=== PATIENT | female | born 2000 | race American Indian/Alaskan Native ===

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

== ENCOUNTER → 2022-01-16 14:08 | Outpatient (CLI) | payer MEDICAID, OTHER, SELFPAY ==
--- NOTE | 2022-01-16 14:10 | DI.US.S_ITS ---
PROCEDURE: US OB <= 14 WEEKS FETUS INDICATIONS: ANATOMY OUTSIDE/PRIOR DATING DATA: Last menstrual period (LMP): 08/08/2021. LMP-based estimated date of delivery (TRANG): 05/15/2022. First dating scan (date and location): 01/16/2022. Estimated date of delivery (TRANG) from first dating scan: 05/21/2022. The calculations are made using the ultrasound TRANG of 05/21/2022. TECHNIQUE: Real-time scanning was performed of the fetus and maternal pelvic organs, with image documentation. COMPARISON: None. FINDINGS: Placenta: Posterior TOBIN: 19.7 cm Heart rate: 147 beats per minute Cervical length: 3.7 cm Biparietal diameter 5.4 cm. 22 weeks 3 days Head circumference 19.4 cm. 21 weeks 4 days Abdominal circumference 17.2 cm. 22 weeks 1 day Femur length 3.9 cm. 22 weeks 3 days. Estimated weight 482 grams. 12th percentile. Anatomic survey: Neuro: Ventricles are non-dilated at less than 10 mm. Cisterna magna is normal at 3-11 mm. Cerebellum is normal in size and morphology. Nuchal skin fold: Normal at less than 6 mm between 14-20 weeks gestational age. Face: Nose and lips, facial profile are normal. Spine: No evidence for spina bifida. Heart: 4-chambered heart is present, with normal ventricular outflow tracts. Diaphragm: Diaphragm is intact. Stomach: Left-sided stomach is present. Kidneys: No hydronephrosis. Normal is less than 4 mm in 2nd trimester, less than 7 mm in 3rd trimester. Cord: 3-vessel cord has orthotopic insertion. Bladder: Normal in size. Extremities: All 4 extremities identified. IMPRESSION: 1. Single live intrauterine with a composite gestational age of 22 weeks 1 day. 2. Estimated weight 482 grams. 12th percentile. 3. Anatomic survey is normal. We strive to produce accurate, complete, and clear reports of imaging services. To assist us in improving patient care, this report was composed using standard report templates and voice recognition software. Therefore, it may contain abnormal punctuation, insertions and/or omissions. Occasional wrong-word or sound-alike substitutions may occur. Though we review the report and make efforts to correct it, we do recommend that the report be read carefully in proper context to recognize any text inaccuracies. Dictated by: Christ Lala M.D. on 01/16/2022 at 16:09 Approved by: Christ Lala M.D. on 01/16/2022 at 16:14
== END ==
PROVIDERS: PCP Family Medicine; Referring Provider Family Medicine; Visit Provider Family Medicine
DX: Z3A.22 22 weeks gestation of pregnancy (principal); Z36.89 Encounter for other specified antenatal screening
CPT/HCPCS: 76801

== ENCOUNTER → 2022-03-14 14:34 | Outpatient (CLI) | payer MEDICAID, OTHER, SELFPAY ==
[2022-03-14 17:53] LABS: GTT (PREG) 1 Hour PP 50gm Dose 119 mg/dL (76-139)
[2022-03-14 19:03] LABS: Appearance Urine UA CLOUDY; Bilirubin Urine UA NEGATIVE (NEGATIVE); Color Urine UA YELLOW; Glucose Urine UA NEGATIVE (Negative); Ketones Urine UA NEGATIVE (NEGATIVE); Leukocyte Esterase Urine UA 2+ (NEGATIVE); Nitrite Urine UA NEGATIVE (Negative); Occult Blood Urine UA NEGATIVE (Negative); Protein Urine UA 2+ (Negative)
[2022-03-14 19:05] LABS: pH Urine UA 6.5 (4.5-8.0)
[2022-03-14 19:07] LABS: Bacteria Urine Many (>30); Culture Indicated Urine Specimen Cultured; RBC Urine 0-1/HPF (0-5/HPF); Squamous Epithelial Cell Urine 5-10 /HPF (0-5/HPF); WBC Urine 10-30/HPF (0-5/HPF)
== END ==
PROVIDERS: PCP Family Medicine; Referring Provider Family Medicine; Visit Provider Family Medicine
DX: N39.0 Urinary tract infection, site not specified (principal); Z34.93 Encounter for supervision of normal pregnancy, unspecified, third trimester; Z3A.29 29 weeks gestation of pregnancy
CPT/HCPCS: 81001; 82950; 87077; 87086; 87186

== ENCOUNTER → 2022-05-04 16:15 | Outpatient (CLI) | payer MEDICAID, OTHER, SELFPAY ==
[2022-05-05 15:02] LABS: Strep Grp B PCR NEG for Grp B Strep
== END ==
PROVIDERS: PCP Family Medicine; Visit Provider Family Medicine
DX: Z36.85 Encounter for antenatal screening for Streptococcus B (principal)
CPT/HCPCS: 87653

== ENCOUNTER 2022-05-15 08:12 | Inpatient (IN) | payer MEDICAID, OTHER, SELFPAY ==
--- NOTE | 2022-05-15 09:00 | PM.OBHP.1 ---
OB HPI Date/Time Date of admission: 05/15/22 Date Patient Seen: 05/15/22 Time Patient Seen: 09:00 History of Present Condition Chief complaint: L&D : 2 Para: 1 Estimated Date of Delivery: 05/28/22 Estimated Gestational Age (weeks): 38+1 Narrative: Shabnam Means is a 21 year old TRANG 05/28/2022 who presents with SROM earlier this AM and steadily increasing contractions. Excellent care has been provided by Dr. Bethany Power and her course has been uneventful. GBS is negative. History of Present care: good care Dating criteria: LMP confirmed by 1st trimester US Ultrasounds: normal 1st trimester US and normal mid trimester US Medical complications: none Preadmission Labs Blood type: O (+) positive -: Antibody screen: negative, GBS status: negative, HBsAG: negative, HIV: negative and RPR/VDLR: negative -: Chlamydia screen: not detected and Gonorrhea screen: not detected -: Rubella: not immune and Varicella: immune HCT: 30.8 HCAB: negative PAP: Normal Quad screen: Normal 1 hr GTT: 119 Prior (ies) History: x 1 Evaluation Evaluation Baseline heart rate: 135 Variability: Moderate (11-25) monitor accelerations: Present Monitor Decelerations: Absent Contraction Frequency (minutes): 3 Uterine Contraction Intensity: Moderate Category of Tracing: Reactive Dilation (cm): 5 Effacement (%): 100 Dilation: >/=5 cm Effacement: >/=80% station: 0 Position of cervix: anterior Consistency: soft Emanuel score: 12 Non-invasive Membranes Rupture Test: positive Comments: Thin meconium staining noted. [facility] Medical History (Updated 01/25/22 @ 05:35 by Bethany Power MD) Healthy adolescent hemorrhage (spontaneous vaginal delivery) Teeth decayed Family History Grandmother Breast cancer Uterine cancer Rheumatoid arteritis Grandfather Septicemia Diabetes mellitus Pancreatitis Kidney failure Sister Eye disease Grandfather Alcoholic Family/Other Diabetes mellitus Hypertension Social History marital status: unmarried,living together number of children: 1 household members: significant other, family and children housing: house pets and animals: No education level: high school occupational status: unemployed current occupational exposures/hazards: No seatbelt use: always water heater temp set < 120 deg: Yes working smoke detector in home: Yes fire extinguisher in home: Yes carbon monox detector in home: Yes firearms in home: No do you feel safe at home: Yes Smoking Status: Never smoker substance use type: does not use during the past year weight has: remained stable well-balanced diet: daily or most days daily servings fruits/ve-4 caffeine: No eating out: rarely or never Type(s) of exercise: walking Meds Home Medications and Allergies Home Medications Medication Instructions Recorded Confirmed Type vitamin 1 tab PO DAILY #90 tabs 09/29/21 05/15/22 Rx no.76-iron,carbonyl 29 mg iron-folic acid 1 mg tablet (Prenatabs Rx) Allergies Allergy/AdvReac Type Severity Reaction Status Date / Time amoxicillin Allergy Severe swollen, Verified 05/11/22 15:31 SOB, lips swell cephalexin Allergy Severe selling of Verified 05/11/22 15:31 face OB Exam [facility] Head: normal to inspection, normocephalic and atraumatic Eyes General: appearance normal, both eyes and all related structures Resp Effort & Inspection: normal respiratory effort and able to speak in complete sentences Auscultation: clear to auscultation bilaterally Cardio Rate: regular rate Rhythm: regular rhythm Heart Sounds: S1 normal, S2 normal and no murmurs Extremities Lower extremity: Yes normal to inspection GI Inspection: normal to inspection Palpation: Yes soft and Yes no hepatosplenomegaly Uterus Location (Fundal Height): 38 Estimated Weight (lbs): 8 Amniotic Fluid: meconium (Light) Objective Labs Result Diagrams: 05/16/22 06:38 Assessment and Plan Assessment and Plan Assessment and Plan narrative: ASSESSMENT 1. Intrauterine gestation, [facility], 38+ 1 weeks gestational age 2. SROM, thin meconium 3. GBS negative PLAN 1. Admit for 2. See admission orders Time Spent with Patient Total time spent with greater than 50% in coordination of care (as documented) at patient's floor/unit and/or counseling patient:: 15-24 minutes
[2022-05-15 09:32] LABS: COVID19 -Nasal RAPID Negative (Negative)
[2022-05-15 10:23] LABS: Add Manual Diff / Slide Review NO; Basophils Absolute Auto 0 /uL (0-100); Basophils Percent Auto 0.3 % (0-2); Eosinophils Absolute Auto 100 /uL (0-450); Eosinophils Percent Auto 0.7 % (2-4); Hematocrit 30.8 % (36-46); Hemoglobin 10.2 g/dL (12.0-16.0); Lymphocytes Absolute Auto 1700 /uL (1100-4500); Lymphocytes Percent Auto 19.3 % (25-40); Mean Corpuscular Hemoglobin 25.6 PG (26-34); Mean Corpuscular Volume 77.5 fL (80-100); Monocytes Absolute Auto 400 /uL (0-900); Monocytes Percent Auto 4.2 % (3-14); Neutrophils Absolute Auto 6500 /uL (1500-7000); Neutrophils Percent Auto 75.5 % (50-75); Platelet Count 333 X10^3/uL (150-400); Red Blood Cell Count 3.98 X10^6/uL (4.0-5.2); Red Cell Distribution Width 15.9 % (11.6-14.8); White Blood Cell Count 8.7 X10^3/uL (4.5-11.0)
[2022-05-15 10:30] VITALS: BP 116/78
[2022-05-15] MEDS: OXYTOCIN PREMIX 30 UNIT/500 ML PLAST..BAG 200 UNIT IV (11:15)
--- NOTE | 2022-05-15 11:36 | PM.OBPRVD ---
Labor & Delivery Delivery date: 05/15/22 Intrapartal Events: None Cervical ripening method: none Induction method: none Delivery monitor: external FHT and external uterine Route of delivery: L&D Laceration Description: Perineal - 2nd Degree Delivery repair: chromic Estimated blood loss (mL): 200 Anesthesia Type: Local Complications: None Narrative: Patient presented on the morning of 05/15/2022 with spontaneous rupture membranes and thin meconium staining was noted. Patient progressed rapidly to the second stage and after a brief 2nd stage delivered spontaneously over an intact perineum a viable male infant with Apgars of 9 and 10 and a weight of 3497 gms..? No shoulder dystocia was encountered and there was no cord entanglement noted.? Skin to skin contact was initiated immediately and after approximately 90 seconds the umbilical cord was clamped and cut by the father.? Cord blood samples were obtained for routine studies.? The placenta was removed with gentle cord traction and suprapubic countertraction.? The placenta was inspected and found to be intact with or normal insertion of a 3 vessel cord.? Inspection of the perineum showed a very superficial second-degree midline perineal laceration which was repaired with 00 CCGS under local anesthesia using 1% plain lidocaine.? Instrument and sponge counts were correct at the end of the procedure.? EBL is 350 cc and a single dose of methergine was administered to control slightly excessive delivery losses. Both mother and are doing well at the completion of the delivery process. Baby 1: Infant gender: Male Presentation: vertex Position: Left Occiput Anterior Placenta delivery description: Spontaneous Cord Vessel Description: 3 Vessels score (1 min): 9 score (5 min): 9 weight: 7 lb 11.353 oz
[2022-05-15] MEDS: METHYLERGONOVINE 0.2 MG/ML VIAL IM (11:45)
[2022-05-15] MEDS: ACETAMINOPHEN 325 MG TABLET 650 MG PO ×2 (12:54→18:32)
[2022-05-16 06:51] LABS: Hemoglobin 8.6 g/dL (12.0-16.0)
--- NOTE | 2022-05-16 08:01 | P.DS_ITS ---
Discharge Providers Provider Date of admission: 05/15/22 08:12 Discharge Date: 05/16/22 Primary care physician: Phillip Neff MD Consults: 05/15/22 08:56 Consult to Anesthesiology Urgent Comment: Consulting Provider: Phillip Neff Reason for consultation: SUE placement in labor 05/16/22 11:34 Consult to Natural Sciences Department Chair Routine Comment: Discharge provider: Phillip Neff MD Summary Hospital Course Date Patient Seen: 05/16/22 Time Patient Seen: 08:02 Diagnoses: Intrauterine gestation, [facility], 38+ 1 weeks gestational age, delivered Hospital Course: Shabnam presented on the morning of 05/15/2022 with spontaneous rupture membranes and active contractions. Thin meconium staining was noted. The patient progressed rapidly through the 1st stage of labor and delivered spontaneously a healthy male infant mid day 05/15/2022. Following delivery the patient had a transient increase in her bleeding which responded nicely to IV Pitocin and IM methergine. Her post delivery hemoglobin & hematocrit are 8.6/26.0 respectively which is consistent with observed delivery losses. Following delivery she has had prompt return of bowel and bladder function, is ambulating independently, tolerating regular diet, and her pain is well controlled with oral Tylenol. She will be discharged at this time to home in an afebrile normotensive condition after being counseled regarding precautionary symptoms, limitations of activity, medications, plans for follow- up. Medications at discharge will include Tylenol for pain relief, patient will continue her vitamins, and she will also take an iron tablet daily with a vitamin-C tablet for the next 30 days. Follow-up will be with Dr. Power in 6 weeks or as needed. Peripartum Data Delivery Method: Natural Vaginal Laceration Description: Perineal - 2nd Degree Episiotomy description: None Procedures: Spontaneous vaginal delivery Repair of second-degree perineal laceration 1: Gender: Male Disposition of : home Status at Discharge Cognitive/behavioral status at discharge: oriented Functional status at discharge: independent ambulation Time Spent with Patient Time attestation: Total time spent providing and/or coordinating discharge services: Time spent: Less than 30 minutes Objective Labs Result Diagrams: 05/16/22 06:38 Labs: Laboratory Results - last 24 hr 05/15/22 05/15/22 05/15/22 08:55 10:00 10:00 WBC 8.7 RBC 3.98 L Hgb 10.2 L Hct 30.8 L MCV 77.5 L MCH 25.6 L MCHC 33.0 RDW 15.9 H Plt Count 333 Neut % (Auto) 75.5 H Lymph % (Auto) 19.3 L [place] % (Auto) 4.2 Eos % (Auto) 0.7 L Baso % (Auto) 0.3 Neut # (Auto) 6500 Lymph # (Auto) 1700 [place] # (Auto) 400 Eos # (Auto) 100 Baso # (Auto) 0 SARS-CoV-2 (PCR) Negative Blood Type O Positive Antibody Screen Negative 05/16/22 06:38 WBC RBC Hgb 8.6 L Hct 26.0 L MCV MCH MCHC RDW Plt Count Neut % (Auto) Lymph % (Auto) [place] % (Auto) Eos % (Auto) Baso % (Auto) Neut # (Auto) Lymph # (Auto) [place] # (Auto) Eos # (Auto) Baso # (Auto) SARS-CoV-2 (PCR) Blood Type Antibody Screen Exam Const General: cooperative and comfortable Nutritional Appearance: average body habitus Orientation: alert and oriented x3 HENMT Head: normal to inspection, atraumatic and abrasion Ears: hearing grossly normal bilaterally Face and sinus: face symmetric Eyes General: appearance normal, both eyes and all related structures Conjunctivae: conjunctivae normal Sclera: sclerae normal EOM: EOM intact bilaterally Neck Neck: normal visual inspection Resp Effort & Inspection: normal respiratory effort and able to speak in complete sentences GI Inspection: normal to inspection Palpation: soft, no hepatosplenomegaly, mass (Firm, minimally tender fundus, U - 4) and No tender External Female Exam: other (No significant bleeding noted, repair intact) Extrem General: no calf tenderness Psych Appearance: grossly normal Mental Status: mental status grossly normal Speech and Movement: speech and movement normal Mood: congruent mood Affect: normal affect Attitude: cooperative Thought Process: normal Thought Content: normal Judgment: judgment good Discharge Plan Discharge Plan Patient Disposition: Home Provider Discharge Comment: Please review the written instructions you received when you were discharged from the hospital. A follow-up appointment with Dr. Power has been scheduled for 6 weeks from your delivery. Congratulations on your son's ! Discharge orders & Medications Prescriptions: Continued Prenatabs Rx 29 mg iron- 1 mg tablet 1 tab PO DAILY Qty: 90 3RF Medication counseling provided by Pharmacist: No Follow up/Referrals: Bethany Power MD [Physician] - 6 Weeks (Please follow up with Dr. Power on June 26 @1030AM. Please call the clinic with any questions comments or concerns. ) Discharge Health Status Multidrug resistant organism: No MDRO Diet/Activity/Treatments Diet: Diet as Tolerated Activity: As tolerated Other treatments: [id number] Tylenol for pain relief. [id number]-[id number] iron tablet, 1 daily with food and a vitamin-C tablet for the next 30 days. Skin/Wound/Dressing Care Report to your healthcare provider any signs of infection, such as:: chills, fever, night sweats, unusual drainage and unusual redness Dressing: N/A Visit Report/Discharge Packet Instructions: DI for Labor and Delivery, Vaginal , DI for and Nipple Soreness Stand Alone Forms: Discharge: Care Discharge Data Primary Care Provider: Phillip Neff
[2022-05-16 11:22] VITALS: BP 112/78; PULSE 85; RESP 16; TEMP 36.8
== END 2022-05-16 11:50 | disposition home or self-care (01) | DRG 807 ==
PROVIDERS: Admitting Provider Obstetrics & Gynecology; PCP Obstetrics & Gynecology; Referring Provider Family Medicine; Visit Provider Obstetrics & Gynecology
DX: O42.02 Full-term premature rupture of membranes, onset of labor within 24 hours of rupture (principal); Z37.0 Single live birth; O77.0 Labor and delivery complicated by meconium in amniotic fluid; Z3A.38 38 weeks gestation of pregnancy; Z20.822 Contact with and (suspected) exposure to COVID-19
CPT/HCPCS: 36415; 59050; 59410; 85014; 85018; 85025; 86850; 86900; 86901; 87635; C9803; G0379; J2210; J2590

== ENCOUNTER 2022-08-23 18:49 | Emergency (ER) | payer MEDICAID, OTHER, SELFPAY ==
[2022-08-23 19:16] VITALS: BP 125/60; PULSE 94; RESP 18; O2SAT 100; BMI 26.4
== END 2022-08-23 22:48 | disposition left against medical advice (07) ==
PROVIDERS: PCP Obstetrics & Gynecology; Visit Provider Emergency Medicine
DX: R07.9 Chest pain, unspecified (principal); R06.02 Shortness of breath; Z53.21 Procedure and treatment not carried out due to patient leaving prior to being seen by health care provider
CPT/HCPCS: 93005; 93010; 99281

== ENCOUNTER 2023-02-08 01:17 | Emergency (ER) | payer MEDICAID, OTHER, SELFPAY ==
[2023-02-08 01:25] VITALS: BP 118/73; PULSE 92; RESP 18; TEMP 36.6; O2SAT 100
--- NOTE | 2023-02-08 02:06 | ED.SKABFB ---
HPI - Skin/Abscess/Foreign Bdy General Chief complaint: Skin/Abscess/Foreign Body Stated complaint: wisdomteeth pulled having allergic reaction to med Time Seen by Provider: 02/08/23 01:49 Source: patient Mode of arrival: Ambulatory Limitations: no limitations History of Present Illness HPI narrative: Patient is a healthy 22-year-old female who reports that she is 5 wisdom teeth pulled today. She is allergic to ibuprofen and amoxicillin her dentist gave her dexamethasone. She took the 1st dose just recently now feels like she has bumps on her lips. Her mouth is swollen she is managing her secretions she is no stridor. She is no other hives. She reports that when she was allergic to amoxicillin her lips swelled and she is worried that she is having allergic reaction again. She was prescribed clindamycin which he is not yet taken along with hydrocodone also which she is not yet taken. Who reports that she is currently a 9-month-old baby. Related Data Previous Rx's Medication Instructions Recorded vitamin 1 tab PO DAILY #90 tabs 09/29/21 no.76-iron,carbonyl 29 mg iron-folic acid 1 mg tablet (Prenatabs Rx) Allergies Allergy/AdvReac Type Severity Reaction Status Date / Time amoxicillin Allergy Severe swollen, Verified 06/26/22 13:58 SOB, lips swell cephalexin Allergy Severe selling of Verified 06/26/22 13:58 face Review of Systems Review of Systems ROS Unobtainable: All systems reviewed & are unremarkable except as noted in HPI and below Patient History Medical History Healthy adolescent hemorrhage (spontaneous vaginal delivery) Teeth decayed Family History Grandmother Breast cancer Uterine cancer Rheumatoid arteritis Grandfather Septicemia Diabetes mellitus Pancreatitis Kidney failure Sister Eye disease Grandfather Alcoholic Family/Other Diabetes mellitus Hypertension Social History marital status: unmarried,living together number of children: 1 household members: significant other, family and children housing: house pets and animals: No education level: high school occupational status: unemployed current occupational exposures/hazards: No seatbelt use: always water heater temp set < 120 deg: Yes working smoke detector in home: Yes fire extinguisher in home: Yes carbon monox detector in home: Yes firearms in home: No do you feel safe at home: Yes Smoking Status: Never smoker substance use type: does not use during the past year weight has: remained stable well-balanced diet: daily or most days daily servings fruits/ve-4 caffeine: No eating out: rarely or never Type(s) of exercise: walking Smoking Status: Never smoker Substance Use Type: does not use Exam Initial Vital Signs Initial Vital Signs: Vital Signs Temperature 98 F 02/08/23 01:25 Pulse Rate 92 H 02/08/23 01:25 Respiratory Rate 18 02/08/23 01:25 Blood Pressure 118/73 02/08/23 01:25 Pulse Oximetry 100 02/08/23 01:25 Oxygen Delivery Method Room Air 02/08/23 01:25 GENERAL: Alert 22-year-old female MOUTH: Minimal lip swelling no obvious bumps or bubbles that she reports seeing. CARDIOVASCULAR: peripheral pulses in tact, cap refill <2 sec RESPIRATORY: No respiratory distress, speaks in full sentences without difficulty EXTREMITIES: Normal range of motion, no clubbing or edema. Neurovascularly intact NEUROLOGICAL: Cranial nerves II through XII grossly intact. Normal gait and speech. SKIN: Warm, dry, no petechiae, no rashes or lesions. No hives or urticaria Course Vital Signs Vital signs: Vital Signs - 8 hr 02/08/23 01:25 02/08/23 02:24 Temperature 98 F 97.6 F Pulse Rate 92 H 74 Respiratory Rate 18 16 Blood Pressure 118/73 108/68 Pulse Oximetry 100 98 Oxygen Delivery Method Room Air Room Air MDM - Skin/Abscess/Foreign Bdy MDM Narrative Medical decision making narrative: Patient is a 22 old female history of allergic reaction ibuprofen and amoxicillin. After taking 1 dose of dexamethasone she reports seeing swelling and blisters on her lips. I do not appreciate any sign of allergic reaction. Think her mouth is swollen tender from having 5 teeth pulled earlier today. He is offered Benadryl however it can decrease her milk supply she would prefer not to she would like to go home and take allergy medication. At this time there is no sign of anaphylaxis or severe allergic reaction having no intervention is required. Discharge Plan Departure Patient Disposition: Home Clinical Impression: Pain following oral surgery Instructions: DI for Dental Pain Activity Restrictions/Additional Instructions: *You have been diagnosed with mouth pain dental pain *What to do: At this time I do not see any obvious sign of allergic reaction however please continue to monitor. I think lips are swollen sore from the events of earlier today. *Continue to take medications as directed Cetirizine 1 tablet daily is needed *Follow up with your primary care provider in 2-3 days or call [phone] *Return to ER if you should have increased lip swelling difficulty swallowing throat tightness or any new, worsening or concerning symptoms Prescriptions: No Action Prenatabs Rx 29 mg iron- 1 mg tablet 1 tab PO DAILY Qty: 90 3RF Referrals: Phillip Neff MD [Primary Care Provider] - Stand Alone Forms: Patient Portal/API
[2023-02-08 02:24] VITALS: BP 108/68; PULSE 74; RESP 16; TEMP 36.4; O2SAT 98
== END 2023-02-08 02:25 | disposition home or self-care (01) ==
PROVIDERS: Emergency Provider Emergency Medicine; PCP Obstetrics & Gynecology
DX: K08.89 Other specified disorders of teeth and supporting structures (principal)
CPT/HCPCS: 99281

== ENCOUNTER 2023-12-31 16:53 | Emergency (ER) | payer MEDICAID, OTHER, SELFPAY ==
[2023-12-31 17:05] VITALS: BP 120/65; PULSE 90; RESP 18; TEMP 36.8; O2SAT 100
[2023-12-31 17:13] VITALS: PULSE 99; RESP 20
[2023-12-31 17:14] VITALS: BP 118/70; PULSE 100; RESP 20; O2SAT 98
--- NOTE | 2023-12-31 17:24 | PC.NURSE ---
Pt states that she has been feeling left sided cp and pain in her left arm since 12/29/2023. Pt has hx of anxiety but no other medical problems. Pt reports being prescribed a flouxetine recently but has not taken it yet. Denies cp, sob, n/v at this time. Denies pain in her arm. a&ox4. Pt tearful states that she is anxious something is wrong with her heart.
[2023-12-31 17:30] VITALS: BP 106/60; PULSE 96; RESP 20; O2SAT 100
[2023-12-31 18:00] VITALS: BP 104/66; PULSE 93; O2SAT 98
--- NOTE | 2023-12-31 18:06 | DI.RAD.S_ITS ---
PROCEDURE: XR CHEST 1V INDICATIONS: chest pain TECHNIQUE: One view of the chest was acquired. COMPARISON: None. FINDINGS: Surgical changes and devices: None. Lungs and pleura: Low lung volumes, but otherwise lungs are clear. No pleural effusions or pneumothorax. Mediastinum: Mediastinal contours appear normal. Heart size is normal. Bones and chest wall: No suspicious bony lesions. Overlying soft tissues appear unremarkable. IMPRESSION: No acute cardiopulmonary abnormality is seen. Approved by: Alison Izquierdo M.D. on 12/31/2023 at 17:33
[2023-12-31 18:30] VITALS: BP 108/56; PULSE 97; RESP 22; O2SAT 100
--- NOTE | 2023-12-31 18:39 | ED_ITS ---
HPI - Chest Pain General Chief Complaint: Chest Pain Stated Complaint: numbness in left arm Time Seen by Provider: 12/31/23 17:55 Source: patient Mode of arrival: Ambulatory Limitations: no limitations History of Present Illness HPI narrative: 23-year-old female. Three days ago in the middle of the night started to left- sided chest discomfort. It has been intermittent since then. She has not currently having discomfort. She also states she has had tingling to her left arm. She actually describes it as tingling to her left hand circumferentially and then circumferentially around the upper part of her arm. She was also having right hand tingling as well. No shortness of breath. No abdominal pain or nausea vomiting. She currently is asymptomatic. Symptoms not worse with palpation or movement. Related Data Previous Rx's Medication Instructions Recorded vitamin 1 tab PO DAILY #90 tabs 09/29/21 no.76-iron,carbonyl 29 mg iron-folic acid 1 mg tablet (Prenatabs Rx) fluoxetine 20 mg tablet 20 mg PO DAILY #30 tabs 12/03/23 Allergies Allergy/AdvReac Type Severity Reaction Status Date / Time amoxicillin Allergy Severe swollen, Verified 12/03/23 14:36 SOB, lips swell cephalexin Allergy Severe selling of Verified 12/03/23 14:36 face Review of Systems Constitutional Constitutional: Reports system reviewed and no additional complaints, except as documented Cardiovascular Cardiovascular: Reports system reviewed and no additional complaints, except as documented Respiratory Respiratory: Reports system reviewed and no additional complaints, except as documented Gastrointestinal Gastrointestinal: Reports system reviewed and no additional complaints, except as documented Musculoskeletal Musculoskeletal: Reports system reviewed and no additional complaints, except as documented Integumentary/Breasts Skin/Breast: Reports system reviewed and no additional complaints, except as documented Neurologic Neurologic: Reports system reviewed and no additional complaints, except as documented Patient History Medical History hemorrhage (spontaneous vaginal delivery) Teeth decayed Healthy adolescent Family History Grandmother Breast cancer Uterine cancer Rheumatoid arteritis Grandfather Septicemia Diabetes mellitus Pancreatitis Kidney failure Sister Eye disease Grandfather Alcoholic Family/Other Diabetes mellitus Hypertension Social History marital status: unmarried,living together number of children: 1 household members: significant other, family and children housing: house pets and animals: No education level: high school occupational status: unemployed current occupational exposures/hazards: No seatbelt use: always water heater temp set < 120 deg: Yes working smoke detector in home: Yes fire extinguisher in home: Yes carbon monox detector in home: Yes firearms in home: No do you feel safe at home: Yes Smoking Status: Never smoker substance use type: does not use during the past year weight has: remained stable well-balanced diet: daily or most days daily servings fruits/ve-4 caffeine: No eating out: rarely or never Type(s) of exercise: walking Smoking Status: Never smoker Substance Use Type: does not use Exam Initial Vital Signs Initial Vital Signs: Vital Signs Temperature 98.3 F 12/31/23 17:05 Pulse Rate 90 12/31/23 17:05 Respiratory Rate 18 12/31/23 17:05 Blood Pressure 120/65 12/31/23 17:05 Pulse Oximetry 100 12/31/23 17:05 Oxygen Delivery Method Room Air 12/31/23 17:05 HENMT Head: normal to inspection and normocephalic Resp Effort & Inspection: normal respiratory effort Auscultation: clear to auscultation bilaterally Cardio Rate: regular rate Rhythm: regular rhythm Pulses: radial pulses present on the left GI Inspection: normal to inspection Skin General: no rashes or lesions noted Neuro General: patient alert, patient awake, patient oriented x3 and moves all extremities Extrem General: normal to inspection and capillary refill normal Course Orders Ordered: ED Orders 12/31/23 17:17 EKG-12 Lead Stat 12/31/23 18:06 XR chest 1V Stat Vital Signs Vital signs: Vital Signs - 8 hr 12/31/23 17:05 12/31/23 17:13 12/31/23 17:14 Temperature 98.3 F Pulse Rate 90 99 H Respiratory Rate 18 20 Blood Pressure 120/65 118/70 Pulse Oximetry 100 Oxygen Delivery Method Room Air 12/31/23 17:14 12/31/23 17:30 12/31/23 17:30 Temperature Pulse Rate 100 H 96 H Respiratory Rate 20 20 Blood Pressure 106/60 Pulse Oximetry 98 100 Oxygen Delivery Method 12/31/23 18:00 12/31/23 18:00 12/31/23 18:30 Temperature Pulse Rate 93 H Respiratory Rate Blood Pressure 104/66 108/56 L Pulse Oximetry 98 Oxygen Delivery Method 12/31/23 18:30 Temperature Pulse Rate 97 H Respiratory Rate 22 Blood Pressure Pulse Oximetry 100 Oxygen Delivery Method MDM - Chest Pain Imaging Data Chest x-ray: Radiologist's Impression: PROCEDURE: XR CHEST 1V INDICATIONS: chest pain TECHNIQUE: One view of the chest was acquired. COMPARISON: None. FINDINGS: Surgical changes and devices: None. Lungs and pleura: Low lung volumes, but otherwise lungs are clear. No pleural effusions or pneumothorax. Mediastinum: Mediastinal contours appear normal. Heart size is normal. Bones and chest wall: No suspicious bony lesions. Overlying soft tissues appear unremarkable. IMPRESSION: No acute cardiopulmonary abnormality is seen. ECG Data Attestation: I personally reviewed and interpreted this ECG as follows: Interpretation: Sinus tachycardia Ventricular rate 102 Normal axis Normal QRS Normal QTC No ST T wave changes MDM Narrative Medical decision making narrative: Currently asymptomatic. EKGs unremarkable. Chest x-ray is unremarkable. No chest pain currently. I have low suspicion for ACS. No indication for antibiotics. The tingling she is having in her arm does not follow any specific cervical nerve root distribution. I do feel that we can hold on further radiologic studies for now. She was given return precautions. She expressed understanding and agreement. Discharge Plan Departure Patient Disposition: Home Clinical Impression: Paresthesia of left arm Instructions: DI for Numbness/Tingling Activity Restrictions/Additional Instructions: Your workup here in the emergency department is very reassuring. Recommend that you continue any medications as directed. Contact your primary doctor for a follow-up. Return to the emergency department for new symptoms. Prescriptions: No Action fluoxetine 20 mg tablet 20 mg PO DAILY Qty: 30 2RF Prenatabs Rx 29 mg iron- 1 mg tablet 1 tab PO DAILY Qty: 90 3RF Referrals: Phillip Neff MD [Primary Care Provider] - Stand Alone Forms: Patient Portal/API
== END 2023-12-31 18:47 | disposition home or self-care (01) ==
PROVIDERS: Emergency Provider Emergency Medicine; PCP Obstetrics & Gynecology
DX: R20.2 Paresthesia of skin (principal); R07.9 Chest pain, unspecified
CPT/HCPCS: 71045; 93005; 99283; 99284

== ENCOUNTER 2024-07-20 18:56 | Emergency (ER) | payer MEDICAID, OTHER, SELFPAY ==
[2024-07-20 19:09] VITALS: BP 131/69; PULSE 89; RESP 16; TEMP 36.6; O2SAT 99; BMI 38.2
--- NOTE | 2024-07-20 19:12 | DI.RAD.S_ITS ---
PROCEDURE: XR WRIST RT MIN 3V INDICATIONS: pain without injury TECHNIQUE: 3 views of the wrist were acquired. COMPARISON: None. FINDINGS: Bones: No fractures or dislocations. No suspicious bony lesions. Soft tissues: No suspicious soft tissue calcifications. IMPRESSION: No gross acute right wrist fracture or dislocation. Dictated by: Turner Tinajero M.D. on 07/20/2024 at 19:53 Approved by: Turner Tinajero M.D. on 07/20/2024 at 19:53
--- NOTE | 2024-07-20 20:04 | ED.EXTPRO ---
HPI - Extremity Problem General Chief complaint: Extremity Problem,Nontraumatic Stated complaint: R WRIST PAIN Time Seen by Provider: 07/20/24 19:18 Source: patient Mode of arrival: Ambulatory History of Present Illness HPI Narrative: Patient is a 24-year-old female here for evaluation of right wrist pain. Symptoms have been present for the past day or so. No specific injury for the discomfort although she does have a 2-year-old. She was right-handed. She does hold the child in her right arm frequently specifically to feed. No elbow pain. Has not tried anything for the symptoms prior to arrival. Related Data Previous Rx's Medication Instructions Recorded vitamin 1 tab PO DAILY #90 tabs 09/29/21 no.76-iron,carbonyl 29 mg iron-folic acid 1 mg tablet (Prenatabs Rx) fluoxetine 20 mg tablet 20 mg PO DAILY #30 tabs 12/03/23 Allergies Allergy/AdvReac Type Severity Reaction Status Date / Time amoxicillin Allergy Severe swollen, Verified 07/20/24 19:09 SOB, lips swell cephalexin Allergy Severe selling of Verified 07/20/24 19:09 face Review of Systems Musculoskeletal Musculoskeletal: Reports system reviewed and no additional complaints, except as documented Integumentary/Breasts Skin/Breast: Reports system reviewed and no additional complaints, except as documented Neurologic Neurologic: Reports system reviewed and no additional complaints, except as documented Patient History Medical History hemorrhage (spontaneous vaginal delivery) Teeth decayed Healthy adolescent Family History Grandmother Breast cancer Uterine cancer Rheumatoid arteritis Grandfather Septicemia Diabetes mellitus Pancreatitis Kidney failure Sister Eye disease Grandfather Alcoholic Family/Other Diabetes mellitus Hypertension Social History marital status: unmarried,living together number of children: 1 household members: significant other, family and children housing: house pets and animals: No education level: high school occupational status: unemployed current occupational exposures/hazards: No seatbelt use: always water heater temp set < 120 deg: Yes working smoke detector in home: Yes fire extinguisher in home: Yes carbon monox detector in home: Yes firearms in home: No do you feel safe at home: Yes Smoking Status: Never smoker substance use type: does not use during the past year weight has: remained stable well-balanced diet: daily or most days daily servings fruits/ve-4 caffeine: No eating out: rarely or never Type(s) of exercise: walking Smoking Status: Never smoker Substance Use Type: does not use Exam Initial Vital Signs Initial Vital Signs: Vital Signs Temperature 97.9 F 07/20/24 19:09 Pulse Rate 89 07/20/24 19:09 Respiratory Rate 16 07/20/24 19:09 Blood Pressure 131/69 07/20/24 19:09 Pulse Oximetry 99 07/20/24 19:09 Oxygen Delivery Method Room Air 07/20/24 19:09 Cardio Pulses: radial pulses present on the right Skin General: no rashes or lesions noted Neuro Sensory Exam: no sensory deficits noted Extrem Other: Some discomfort with palpation of the dorsum of the right wrist but she was able to flex and extend and pronate and supinate. Her right elbow is unremarkable. Right hand is unremarkable. Course Orders Ordered: ED Orders 07/20/24 19:12 XR wrist RT min 3V Stat Discontinued Medications Acetaminophen (Acetaminophen 325 Mg Tablet) 650 mg PO NOW ONE Stop: 07/20/24 20:06 Last Admin: 07/20/24 20:14 Dose: 650 mg Documented By: MICHELLE Vital Signs Vital signs: Vital Signs - 8 hr 07/20/24 19:09 07/20/24 20:21 07/20/24 20:22 Temperature 97.9 F Pulse Rate 89 86 Pulse Rate [Right Radial] 85 Respiratory Rate 16 17 Blood Pressure 131/69 105/62 Pulse Oximetry 99 98 Oxygen Delivery Method Room Air Room Air MDM - Extremity (Nontraumatic) Imaging Data Extremity x-ray #1: Radiologist's Impression: PROCEDURE: XR WRIST RT MIN 3V INDICATIONS: pain without injury TECHNIQUE: 3 views of the wrist were acquired. COMPARISON: None. FINDINGS: Bones: No fractures or dislocations. No suspicious bony lesions. Soft tissues: No suspicious soft tissue calcifications. IMPRESSION: No gross acute right wrist fracture or dislocation. [facility] Narrative Medical decision making narrative: No specific injury. No fractures or dislocations noted on the x-ray. I suspect that her discomfort is coming from overuse specifically with lifting her child and other activities related to this. We discussed conservative measures at home. Discussed return precautions. She expressed understanding and agreement with plan. Discharge Plan Departure Patient Disposition: Home Clinical Impression: Sprain of right wrist Instructions: DI for Wrist Sprain, How To Perform RICE (Rest, Ice, Compress, Elevate) Activity Restrictions/Additional Instructions: The wrist splint is for your comfort. You can take it off to shower to wash your hands. Recommend Tylenol and ibuprofen for discomfort. Return to the emergency department for new symptoms. Prescriptions: No Action fluoxetine 20 mg tablet 20 mg PO DAILY Qty: 30 2RF Prenatabs Rx 29 mg iron- 1 mg tablet 1 tab PO DAILY Qty: 90 3RF Referrals: Phillip Neff MD [Primary Care Provider] - Stand Alone Forms: Patient Portal/API
[2024-07-20] MEDS: ACETAMINOPHEN 325 MG TABLET 650 MG PO (20:14)
[2024-07-20 20:21] VITALS: BP 105/62; PULSE 86; RESP 17; O2SAT 98
[2024-07-20 20:22] VITALS: PULSE 85
== END 2024-07-20 20:26 | disposition home or self-care (01) ==
PROVIDERS: Emergency Provider Emergency Medicine; PCP Obstetrics & Gynecology
DX: S63.501A Unspecified sprain of right wrist, initial encounter (principal)
CPT/HCPCS: 73110; 99283

== ENCOUNTER 2024-10-20 23:42 | Observation (INO) | payer MEDICAID, SELFPAY ==
[2024-10-21] VITALS (18 sets, daily range): BP systolic 97–140; BP diastolic 51–79; PULSE 79–119; RESP 16–20; TEMP 35.6–37.4; O2SAT 97–100; BMI 39.5; BMI 38.9; BMI 39.4
--- NOTE | 2024-10-21 | PATH_ITS ---
[facility] Accession Number: [id number] No. of containers..01 Tissue . 01 Material submitted: . appendix - APPENDIX . 01 Diagnosis: APPENDIX, APPENDECTOMY: Early acute appendicitis with mild serositis. [facility] 10/23/2024 1051 Local . 01 Electronically signed: . Hafsa Pinon DO, Pathologist NPI- [id number] . 01 Gross description: . Received in formalin with two patient identifiers and appendix, is a grigsby, vermiform appendix (5.6 cm in length and 1.1 cm in diameter) with a mesoappendix up to 2.7 cm. The serosa is smooth with a minimal amount of grigsby exudate. The Margin is inked blue and the lumen is patent. The lumen ranges from 0.1-0.4 cm in diameter and the hope average 0.5 cm thick with no perforations or lesions grossly seen. Trust Manager sections to include the margin, one-half of the bisected distal tip, and cross sections are submitted in A1. ([id number]) /MRV 10/22/2024 1549 Local . 01 Pathologist provided ICD-10: K35.209 . 01 CPT . 817673 Specimen Comment: A courtesy copy of this report has been sent to [phone] Performed at: [address] [address], [place], [place] [id number] MD Darion Franco MD Phone: [phone]
[2024-10-21 00:58] LABS: Bacteria Urine Many (>30); RBC Urine None Seen (0-5/HPF); Squamous Epithelial Cell Urine 5-10 /HPF (0-5/HPF); Urine Volume 10mL (spun); WBC Urine 30-100/HPF (0-5/HPF)
[2024-10-21 00:59] LABS: Mucus Urine 3+ (Negative)
[2024-10-21 01:00] LABS: Culture Indicated Urine Specimen Cultured
--- NOTE | 2024-10-21 02:53 | ED_ITS ---
HPI - Abdominal Pain General Chief Complaint: Abdominal Pain Stated Complaint: abd pain Time Seen by Provider: 10/21/24 02:44 Source: patient Mode of arrival: Ambulatory History of Present Illness HPI narrative: 24-year-old female with no reported past medical history presents with 1 day of right lower quadrant abdominal pain. Pain started near her umbilicus and migrated to her right lower quadrant. Patient states that she was worried about her appendix. Denies history of abdominal surgeries. Related Data Previous Rx's Medication Instructions Recorded vitamin 1 tab PO DAILY #90 tabs 09/29/21 no.76-iron,carbonyl 29 mg iron-folic acid 1 mg tablet (Prenatabs Rx) fluoxetine 20 mg tablet 20 mg PO DAILY #30 tabs 12/03/23 Allergies Allergy/AdvReac Type Severity Reaction Status Date / Time amoxicillin Allergy Severe swollen, Verified 07/20/24 19:09 SOB, lips swell cephalexin Allergy Severe selling of Verified 07/20/24 19:09 face Patient History Medical History hemorrhage (spontaneous vaginal delivery) Teeth decayed Healthy adolescent Family History Grandmother Breast cancer Uterine cancer Rheumatoid arteritis Grandfather Septicemia Diabetes mellitus Pancreatitis Kidney failure Sister Eye disease Grandfather Alcoholic Family/Other Diabetes mellitus Hypertension Social History marital status: unmarried,living together number of children: 1 household members: significant other, family and children housing: house pets and animals: No education level: high school occupational status: unemployed current occupational exposures/hazards: No seatbelt use: always water heater temp set < 120 deg: Yes working smoke detector in home: Yes fire extinguisher in home: Yes carbon monox detector in home: Yes firearms in home: No do you feel safe at home: Yes Smoking Status: Never smoker substance use type: does not use during the past year weight has: remained stable well-balanced diet: daily or most days daily servings fruits/ve-4 caffeine: No eating out: rarely or never Type(s) of exercise: walking Smoking Status: Never smoker Exam Initial Vital Signs Initial Vital Signs: Vital Signs Temperature 99.3 F 01/08/25 00:18 Pulse Rate 95 H 10/21/24 00:18 Respiratory Rate 16 10/21/24 00:18 Blood Pressure 110/60 10/21/24 00:18 Pulse Oximetry 98 10/21/24 00:18 Oxygen Delivery Method Room Air 10/21/24 00:18 Const: Awake, alert, no acute distress, obese, nontoxic appearing Cardiac: regular rate, regular rhythm RESP: unlabored, clear bilaterally, no wheezing GI: Soft, right lower quadrant tenderness to deep palpation without rebound or guarding Skin: Warm, Dry, intact, no rashes Neuro: AO x3, CN II-XII grossly intact, moves all extremities Course Orders Ordered: ED Orders 10/21/24 00:41 Urine Culture Stat Urine Microscopic Stat 10/21/24 03:30 Complete Blood Count AUTO DIFF Stat Comprehensive Metabolic Panel Stat Lipase Stat 10/21/24 03:40 CT abdomen pelvis w con Stat Metronidazole (Flagyl) 500 mg in 100 mls @ 100 mls/hr IV NOW ONE Stop: 10/21/24 06:05 Ondansetron HCl (Ondansetron 4 Mg/2 Ml Inj) 4 mg IV NOW PRN PRN Reason: Nausea And Vomiting Ondansetron HCl (Ondansetron 4 Mg Odt) 4 mg PO NOW PRN PRN Reason: Nausea And Vomiting Discontinued Medications Ceftriaxone Sodium 2,000 mg/ (Sodium Chloride) 100 mls @ 200 mls/hr IV NOW ONE Stop: 10/21/24 05:07 Last Admin: 10/21/24 05:21 Dose: 200 mls/hr Documented By: MICHELLE Vital Signs Vital signs: Vital Signs - 8 hr 10/21/24 00:18 10/21/24 02:29 10/21/24 02:29 Temperature 99.3 F Pulse Rate 95 H 88 Respiratory Rate 16 Blood Pressure 110/60 121/65 Pulse Oximetry 98 100 Oxygen Delivery Method Room Air 10/21/24 02:30 10/21/24 02:42 10/21/24 02:42 Temperature Pulse Rate 95 H 99 H Respiratory Rate Blood Pressure 121/65 Pulse Oximetry 99 98 Oxygen Delivery Method Room Air 10/21/24 03:00 10/21/24 03:00 10/21/24 03:30 Temperature Pulse Rate 88 Respiratory Rate Blood Pressure 110/61 113/57 L Pulse Oximetry 97 Oxygen Delivery Method 10/21/24 03:30 10/21/24 04:00 10/21/24 04:00 Temperature Pulse Rate 85 79 Respiratory Rate 18 Blood Pressure 104/55 L Pulse Oximetry 98 97 Oxygen Delivery Method MDM - Abdominal Pain Differential Diagnosis Differential diagnosis: Likely abdominal pain, acute appendicitis and calculus of kidney Lab Data 10/21/24 03:30 10/21/24 03:30 Labs: Lab Results 10/21/24 10/21/24 Range/Units 00:41 03:30 WBC 12.8 H (4.5-11.0) X10^3/uL RBC 4.65 (4.0-5.2) X10^6/uL Hgb 12.6 (12.0-16.0) g/dL Hct 38.2 (36-46) % MCV 82.1 (80-100) fL MCH 27.2 (26-34) PG MCHC 33.1 (30-36) % RDW 13.6 (11.6-14.8) % Plt Count 365 (150-400) X10^3/uL Neut % (Auto) 82.8 H (50-75) % Lymph % (Auto) 10.4 L (25-40) % [place] % (Auto) 5.2 (3-14) % Eos % (Auto) 0.7 L (2-4) % Baso % (Auto) 0.9 (0-2) % Neut # (Auto) 53477 H (6449-7757) /uL Lymph # (Auto) 1300 (1166-6572) /uL [place] # (Auto) 700 (0-900) /uL Eos # (Auto) 100 (0-450) /uL Baso # (Auto) 100 (0-100) /uL Sodium 140 (137-145) mmol/L Potassium 3.6 (3.4-5.1) mmol/L Chloride 107 (98-107) mmol/L Carbon Dioxide 25 (22-32) mmol/L BUN 11 (7-17) mg/dL Creatinine 0.74 (0.52-1.04) mg/dL Estimated GFR > 60 (>60) mL/min BUN/Creatinine Ratio 14.9 (6-22) Glucose 97 (70-100) mg/dL Calcium 9.0 (8.4-10.2) mg/dL Total Bilirubin 0.5 (0.2-1.3) mg/dL AST 27 (14-36) IU/L ALT 18 (<35) IU/L Alkaline Phosphatase 97 (38-126) U/L Total Protein 8.1 (6.3-8.2) g/dL Albumin 4.4 (3.5-5.0) g/dL Globulin 3.7 (1.7-4.1) g/dL Albumin/Globulin Ratio 1.2 (1.0-2.8) Lipase 91 (23-300) U/L Urine RBC None seen (0-5/HPF) Urine WBC 30-100/hpf H (0-5/HPF) Ur Squamous Epith Cells 5-10 /hpf H (0-5/HPF) Urine Bacteria Many (>30) H (None) Urine Mucus 3+ H (Negative) Urine Yeast 0-1/hpf (None) Ur Culture Indicated? Specimen cultured Vol Urine Centrifuged 10ml (spun) Point of care testing: Point of Care Testing Test Results Negative Urine Dip Bedside Urine Glucose Negative Bedside Urine Bilirubin - Negative Bedside Urine Ketone - Negative Urine Specific [place] 1.02 Bedside Urine Occult Blood - Negative Bedside Urine pH 6 Bedside Urine Protein +/- 15 Bedside Urine Urobilinogen - Negative Bedside Urine Nitrite + Positive Bedside Urine Leukocytes ++ [address] scan - abdomen/pelvis: Radiologist's Impression: Preliminary review: Acute appendicitis MDM Narrative Medical decision making narrative: Well-appearing patient with 1 day of abdominal pain. Abdomen is soft, she was tender to palpation in the right lower quadrant. Laboratory work, imaging ordered. Laboratory work is significant for WBC count 12.8, otherwise unremarkable. CT of the abdomen and pelvis shows findings consistent with acute appendicitis. Case discussed with Dr. Banegas of General surgery, who requested patient be admitted and kept NPO. Requested Zosyn for coverage, however patient reports allergy to penicillins. Rocephin and Flagyl ordered instead for coverage. Discharge Plan Departure Patient Disposition: Admitted as Observation Clinical Impression: Acute appendicitis Admit Date/Time: 10/21/24 05:06 Admit Provider: Carlos Banegas
[2024-10-21 03:35] LABS: Add Manual Diff / Slide Review NO; Basophils Absolute Auto 100 /uL (0-100); Basophils Percent Auto 0.9 % (0-2); Eosinophils Absolute Auto 100 /uL (0-450); Eosinophils Percent Auto 0.7 % (2-4); Hematocrit 38.2 % (36-46); Hemoglobin 12.6 g/dL (12.0-16.0); Lymphocytes Absolute Auto 1300 /uL (1100-4500); Lymphocytes Percent Auto 10.4 % (25-40); Mean Corpuscular HGB Conc 33.1 % (30-36); Mean Corpuscular Hemoglobin 27.2 PG (26-34); Mean Corpuscular Volume 82.1 fL (80-100); Monocytes Absolute Auto 700 /uL (0-900); Monocytes Percent Auto 5.2 % (3-14); Neutrophils Absolute Auto 10600 /uL (1500-7000); Neutrophils Percent Auto 82.8 % (50-75); Platelet Count 365 X10^3/uL (150-400); Red Blood Cell Count 4.65 X10^6/uL (4.0-5.2); Red Cell Distribution Width 13.6 % (11.6-14.8); White Blood Cell Count 12.8 X10^3/uL (4.5-11.0)
--- NOTE | 2024-10-21 03:40 | DI.CT.S_ITS ---
PROCEDURE: CT ABDOMEN PELVIS W CON INDICATIONS: RLQ PAIN, CONCERN APPENDICITIS TECHNIQUE: After the administration of intravenous contrast, axial sections acquired from the lung bases to the pubic symphysis. Coronal and sagittal reformats were performed. For radiation dose reduction, the following was used: automated exposure control, adjustment of mA and/or kV according to patient size. COMPARISON: None. FINDINGS: Image quality: Diagnostic. Lower Chest: No significant findings. ABDOMEN: Liver: No solid mass. Gallbladder: No radiopaque gallstones or wall thickening. Biliary ducts: No biliary dilation. Pancreas: No ductal dilation. Spleen: Size is within normal limits. Adrenal Glands: No adrenal nodules. Kidneys and Ureters: No hydronephrosis. No solid mass. No complex renal cystic lesion which requires follow up. Stomach and Bowel: The appendix is dilated, with a thickened wall. There is mild periappendiceal fat stranding. Normal enhancement of the appendix. Peritoneum: No abnormal intraperitoneal fluid. No free air. Ventral Wall: No significant ventral hernia. Abdominal Nodes: No retroperitoneal or mesenteric adenopathy by size criteria. Vessels: Aorta and inferior vena cava are normal in size. PELVIS: Pelvic Organs: Unremarkable. Bladder: No bladder wall thickening, accounting for underdistention. Pelvic Nodes: No enlarged lymph nodes. Miscellaneous: No inguinal hernias are seen. Bones: No aggressive osseous abnormality. IMPRESSION: Uncomplicated acute appendicitis. Agree with preliminary report. Dictated by: Vinod Stern M.D. on 10/21/2024 at 7:21 Approved by: Vinod Stern M.D. on 10/21/2024 at 7:25
[2024-10-21 03:45] LABS: Alanine Aminotransferase 18 IU/L (<35); Albumin 4.4 g/dL (3.5-5.0); Albumin Globulin Ratio 1.2 (1.0-2.8); Alkaline Phosphatase 97 U/L (38-126); Aspartate Aminotransferase 27 IU/L (14-36); BUN Creatinine Ratio 14.9 (6-22); Bilirubin Total 0.5 mg/dL (0.2-1.3); Blood Urea Nitrogen 11 mg/dL (7-17); Carbon Dioxide 25 mmol/L (22-32); Chloride 107 mmol/L (98-107); Estimated Glomerular Filt Rate > 60 mL/min (>60); Globulin 3.7 g/dL (1.7-4.1); Glucose 97 mg/dL (70-100); HEMOLYSIS < 15 (0-50); Lipase 91 U/L (23-300); Potassium 3.6 mmol/L (3.4-5.1); Sodium 140 mmol/L (137-145); Total Protein 8.1 g/dL (6.3-8.2)
[2024-10-21] MEDS: cefTRIAXone 2,000 MG in SODIUM CHLORIDE 0.9% 100 ML 200 MG IV (05:21)
[2024-10-21] MEDS: SODIUM CHLORIDE 0.9% 1,000 ML 125 ML IV (08:01)
[2024-10-21] MEDS: metroNIDAZOLE 500 MG/100 ML PIGGYBACK 100 MG IV (08:02)
--- NOTE | 2024-10-21 12:11 | P.HP_ITS ---
History of Present Illness History of Present Illness Date Patient Seen: 10/21/24 Chief complaint: abd pain Narrative: Shabnam is a 24-year-old woman who presented to the emergency department overnight with one day of periumbilical abdominal pain that localized to the right lower quadrant. In the ER a CT scan showed acute uncomplicated appendicitis. [facility] Medical History hemorrhage (spontaneous vaginal delivery) Teeth decayed Healthy adolescent Family History Grandmother Breast cancer Uterine cancer Rheumatoid arteritis Grandfather Septicemia Diabetes mellitus Pancreatitis Kidney failure Sister Eye disease Grandfather Alcoholic Family/Other Diabetes mellitus Hypertension Social History marital status: unmarried,living together number of children: 1 household members: significant other, family and children housing: house pets and animals: No education level: high school occupational status: unemployed current occupational exposures/hazards: No seatbelt use: always water heater temp set < 120 deg: Yes working smoke detector in home: Yes fire extinguisher in home: Yes carbon monox detector in home: Yes firearms in home: No do you feel safe at home: Yes Smoking Status: Never smoker substance use type: does not use during the past year weight has: remained stable well-balanced diet: daily or most days daily servings fruits/ve-4 caffeine: No eating out: rarely or never Type(s) of exercise: walking Meds Home Medications and Allergies Home Medications Medication Instructions Recorded Confirmed Type No Known Home Medications 10/21/24 10/21/24 History Allergies Allergy/AdvReac Type Severity Reaction Status Date / Time amoxicillin Allergy Severe swollen, Verified 07/20/24 19:09 SOB, lips swell cephalexin Allergy Severe selling of Verified 07/20/24 19:09 face Exam Vital Signs (past 8 hours): - 10/21/24 05:24 10/21/24 05:25 10/21/24 05:25 Temperature Pulse Rate 104 H Respiratory Rate Blood Pressure 140/71 Pulse Oximetry 99 98 Oxygen Delivery Method Oxygen Flow Rate 10/21/24 05:30 10/21/24 05:30 10/21/24 06:00 Temperature 97.7 F Pulse Rate 99 H 94 H Respiratory Rate 19 18 Blood Pressure 128/60 129/70 Pulse Oximetry 100 100 Oxygen Delivery Method Room Air Oxygen Flow Rate 0 Oxygen Delivery Method Room Air Oxygen Flow Rate 0 Narrative Exam Narrative: Tender to palpation at McBurney's point Objective Labs 10/21/24 03:30 10/21/24 03:30 Labs: Laboratory Results - last 24 hr 10/21/24 10/21/24 00:41 03:30 WBC 12.8 H RBC 4.65 Hgb 12.6 Hct 38.2 MCV 82.1 MCH 27.2 MCHC 33.1 RDW 13.6 Plt Count 365 Neut % (Auto) 82.8 H Lymph % (Auto) 10.4 L [place] % (Auto) 5.2 Eos % (Auto) 0.7 L Baso % (Auto) 0.9 Neut # (Auto) 17584 H Lymph # (Auto) 1300 [place] # (Auto) 700 Eos # (Auto) 100 Baso # (Auto) 100 Sodium 140 Potassium 3.6 Chloride 107 Carbon Dioxide 25 BUN 11 Creatinine 0.74 Estimated GFR > 60 BUN/Creatinine Ratio 14.9 Glucose 97 Calcium 9.0 Total Bilirubin 0.5 AST 27 ALT 18 Alkaline Phosphatase 97 Total Protein 8.1 Albumin 4.4 Globulin 3.7 Albumin/Globulin Ratio 1.2 Lipase 91 Urine RBC None seen Urine WBC 30-100/hpf H Ur Squamous Epith Cells 5-10 /hpf H Urine Bacteria Many (>30) H Urine Mucus 3+ H Urine Yeast 0-1/hpf Ur Culture Indicated? Specimen cultured Vol Urine Centrifuged 10ml (spun) Assessment & Plan Assessment and plan (1) Acute appendicitis: Qualifiers: Acute appendicitis type: with localized peritonitis Appendicitis gangrene presence: without gangrene Appendicitis perforation presence: without perforation Appendicitis abscess presence: without abscess Qualified Code(s): K35.30 - Acute appendicitis with localized peritonitis, without perforation or gangrene Status: Acute Plan 24-year-old woman with acute uncomplicated appendicitis. We discussed the options of treatment including laparoscopic appendectomy and antibiotic therapy alone. She prefers laparoscopic appendectomy. She did receive ceftriaxone and metronidazole in the ER. Time-Based Coding :: [TOTAL MINUTES] spent with patient and on the chart (including review of chart, obtaining history, exam, reviewing outside data, placing orders, documenting exam and treatment plan, and counseling patient) on [DATE].
--- NOTE | 2024-10-21 14:52 | SUR.OPER ---
Supine on padded OR bed, head on pillow, right arm secured on padded arm boards at <90 degrees abduction, left arm tucked, padded with gel, legs uncrossed, safety belt at thigh, tape over blanket over lower legs.
--- NOTE | 2024-10-21 14:58 | CM.DANOTE ---
Initial DCP Assessment Note Pt is a 24 yo female, resident of [facility], presents with abd pain, admitted for lap appy, scheduled this afternoon. PCP: Bethany Power Payer: GHISLAINE ([facility] GHISLAINE) Reviewed chart, pt discussed in multidisciplinary rounds this morning. Lap appy scheduled today, patient may discharge home after depending on how she is doing. Patient lives independently with her 2yo, spouse and family, and anticipated to return home for her recovery. No barriers identified at this time to patient's safe discharge home w/family to assist; close outpatient f/u recommended. CM team will plan to follow clinical course closely in case any DC needs or concerns arise. JODIE Wiley Discharge Planning/Care Management CM Discharge Assessment Start: 10/21/24 14:55 Freq: Status: Active Protocol: Document 10/21/24 14:56 PATRICIA (Rec: 10/21/24 14:58 PATRICIA [id number]) Discharge Planning Assessment Assigned Drywall Applicator JODIE Garland DPOA/Assigned Designee Name Josiah Nava, spouse Contact Information [phone] Advance Directives? No History Provided By Patient,Medical Record Household Members spouse,family,children Type of transporation used prior to Drives own vehicle admit Independent with ADL's Yes Is patient alert and oriented? Yes Barriers to Discharge No Discharge Plan Home Transportation Arrangement Family Referrals Initiated None needed
--- NOTE | 2024-10-21 15:16 | P.OP_ITS ---
Operative Date/Time/Diagnoses Date of procedure: 10/21/24 Time of procedure: 15:16 Pre-op diagnosis: Acute uncomplicated appendicitis Post-op diagnosis: same Procedure & Clinicians Procedure: Laparoscopic appendectomy Same procedure as scheduled: Yes Surgeon: Carlos Banegas Hot Wort Settler: Erwin Ibrahim Anesthesia Type: General Operative Notes Procedure in detail: The patient was on IV antibiotics. The patient was brought to the operating jewel m, placed on the table in the supine position and general endotracheal anesthesia was induced. A time-out was performed. The abdomen was prepped and draped in the usual fashion. After injection of local anesthetic a 1 cm infraumbilical incision was created with a 15 blade scalpel. The umbilical stalk was grasped with a Max clamp to elevate the abdominal wall. The infraumbilical midline fascia was cleared over 1 cm and the fascia was scored with cautery. The peritoneum was pierced with a Peon clamp. The Fiona port was placed and the abdomen was insufflated to 15 mmHg. The camera was inserted and there was no evidence of any injury from the entry. Next, 5 mm ports were placed in the suprapubic and left lower quadrant positions under direct vision. The patient was placed in Trendelenburg with the right-side elevated. The terminal ileum was swept away from the cecum and the appendix was visualized. The appendix was inflamed and distended but not perforated and there was no evidence of gangrene. The mesoappendix was divided with the Power-seal. Two PDS Endoloops were placed at the base and a 3rd endoloop was placed about a centimeter distally and the appendix was divided sharply. The specimen was placed in a Endo-Catch bag. A small amount of fluid with suctioned from the base of the appendix and pelvis. The table was flattened and the terminal ileum and omentum were allowed to slide in over the appendiceal stump. Finally, the 5 mm ports were removed under direct vision. The pneumoperitoneum was released and the Fiona port was removed followed by the Endo-Catch bag. Additional local was injected into the fascia and the infraumbilical incision was closed with 2 interrupted 2-0 Vicryl sutures. The skin incisions were closed with 4 Monocryl. Steri-Strips were applied followed by Band-Aids. EBL: 5 mL Specimen: Appendix Post-operative Condition: stable Disposition: PACU
[2024-10-21] MEDS: BUPIVACAINE 0.5% W/ EPI (PF) 10 ML VIAL 30 ML INJ (15:22)
[2024-10-21] MEDS: ACETAMINOPHEN 325 MG TABLET 650 MG PO ×2 (18:15→23:59)
[2024-10-21] MEDS: LACTATED RINGERS 1,000 ML 100 ML IV (18:16)
--- NOTE | 2024-10-21 18:54 | PC.NURSE ---
Patient resting in bed, spouse at bedside. Patient reports discomfort 5/10 in abd. pain improved with treatment of medication, position change, and ice pack. Patient is req. to get up and shower. Patient has yet to urinate since arrival to acute care, discussed getting up before 1900 to attmept BR use and poss shower. Fluids running per DEC orders. Call light w/ in reach, bed in low pos. VSS.
--- NOTE | 2024-10-21 19:30 | PC.NURSE ---
Patient is very confused, keeps asking to use the bathroom despite bishop cath in place. Got patient up to the bedside commode for urination. This has helped confusion at the time being. Patient is back to bed and resting. This nurse will cont. with 1:1 care duties and monitoring.
--- NOTE | 2024-10-21 23:19 | PC.NURSE ---
Patient is alert and oriented. Breath sounds diminished but CTA with RA sat of 97%. HRR. Denies nausea. BT hypoactive but reports she has been passing flatus. Denies dysuria and has been voiding without difficulty. Up earlier and showered and then ambulated in durán around main nursing station x2; denied any dizziness or lightheadedness so is now cleared for being up in room independently. Bandaid dressings to abdomen replaced after shower except umbilical surgical site is steri-stripped with serosanguinous drainage but no leakage so left HAIR ASSISTANT. Denied pain upon last assessment and is only taking scheduled Tylenol at this time. Had calf SCD's turned on at shift change but now requesting they be left off. Fall risk score is low. Spouse at bedside earlier.
[2024-10-22] VITALS: BP 106/61; PULSE 84; RESP 18; TEMP 36.6; O2SAT 97
[2024-10-22] MEDS: LACTATED RINGERS 1,000 ML 100 ML IV (02:48)
[2024-10-22] MEDS: ACETAMINOPHEN 325 MG TABLET 650 MG PO (06:03)
[2024-10-22 08:00] VITALS: BP 115/64; PULSE 98; RESP 14; TEMP 36.4; O2SAT 97
--- NOTE | 2024-10-22 09:34 | PC.NURSE ---
Discharge note: Patient discharged home per MD order, tolerating diet and ambulating in room independently. Pain well controlled with PO Tylenol. Discussed importance of F/U with surgery team, weight restrictions, and signs of worsening symptoms. Patient and spouse verbalized understanding of instructions. Home via private vehicle accompanied by spouse. Rx to be picked up at [facility] on way home.
== END 2024-10-22 09:18 | disposition home or self-care (01) ==
LOC: ED 10-21 02:44 → AC 10-21 05:06 → ICU 10-21 05:19 → AC 10-21 13:15
PROVIDERS: Admitting Provider Surgery; Emergency Provider Emergency Medicine; PCP Obstetrics & Gynecology; Referring Provider Emergency Medicine; Visit Provider Surgery
PROC: 0DTJ4ZZ Resection of Appendix, Percutaneous Endoscopic Approach (ICD-10-PCS; CPT 44970; principal; 2024-10-21 13:15)
DX: K35.30 Acute appendicitis with localized peritonitis, without perforation or gangrene (principal)
CPT/HCPCS: 44970; 36415; 74177; 80053; 81003; 81015; 81025; 83690; 85025; 87077; 87086; 87186; 96361; 96365; 96367; 99222; 99283; 99284; G0378; J0330; J0696; J1100; J2250; J2405; J2704; J3010; Q9967

== ENCOUNTER 2025-01-25 16:38 | Emergency (ER) | payer MEDICAID, SELFPAY ==
[2024-10-21 05:17] VITALS: BMI 38.9
[2025-01-25] VITALS (12 sets, daily range): BP systolic 93–129; BP diastolic 50–69; PULSE 86–106; RESP 16; TEMP 36.6; O2SAT 95–100; BMI 49.6
[2025-01-25 17:19] LABS: Add Manual Diff / Slide Review NO; Basophils Absolute Auto 100 /uL (0-100); Basophils Percent Auto 0.8 % (0-2); Eosinophils Absolute Auto 100 /uL (0-450); Eosinophils Percent Auto 1.8 % (2-4); Hematocrit 37.1 % (36-46); Hemoglobin 12.4 g/dL (12.0-16.0); Lymphocytes Absolute Auto 1600 /uL (1100-4500); Lymphocytes Percent Auto 23.3 % (25-40); Mean Corpuscular HGB Conc 33.5 % (30-36); Mean Corpuscular Hemoglobin 27.3 PG (26-34); Mean Corpuscular Volume 81.6 fL (80-100); Monocytes Absolute Auto 700 /uL (0-900); Monocytes Percent Auto 10.2 % (3-14); Neutrophils Absolute Auto 4300 /uL (1500-7000); Neutrophils Percent Auto 63.9 % (50-75); Platelet Count 379 X10^3/uL (150-400); Red Blood Cell Count 4.55 X10^6/uL (4.0-5.2); Red Cell Distribution Width 13.9 % (11.6-14.8); White Blood Cell Count 6.7 X10^3/uL (4.5-11.0)
[2025-01-25 17:26] LABS: Alanine Aminotransferase 25 IU/L (<35); Albumin 4.3 g/dL (3.5-5.0); Albumin Globulin Ratio 1.1 (1.0-2.8); Alkaline Phosphatase 84 U/L (38-126); Aspartate Aminotransferase 33 IU/L (14-36); BUN Creatinine Ratio 12.9 (6-22); Bilirubin Total 0.6 mg/dL (0.2-1.3); Blood Urea Nitrogen 9 mg/dL (7-17); Calcium 8.4 mg/dL (8.4-10.2); Carbon Dioxide 27 mmol/L (22-32); Chloride 106 mmol/L (98-107); Estimated Glomerular Filt Rate > 60 mL/min (>60); Globulin 3.8 g/dL (1.7-4.1); Glucose 94 mg/dL (70-100); HEMOLYSIS < 15 (0-50); Potassium 3.6 mmol/L (3.4-5.1); Sodium 140 mmol/L (137-145); Total Protein 8.1 g/dL (6.3-8.2)
[2025-01-25 17:29] LABS: Pregnancy Test Serum,Qual Negative (Negative)
--- NOTE | 2025-01-25 18:20 | DI.US.S_ITS ---
PROCEDURE: US PELVIC COMPLETE INDICATIONS: vaginal bleeding TECHNIQUE: Real-time scanning was performed of the pelvic organs, with image documentation. Additional endovaginal scanning was necessary due to incomplete visualization of the adnexal and endometrial structures by transabdominal scanning. COMPARISON: None. FINDINGS: Uterus: Uterus is anteverted and normal in size at 7.2 x 3.5 x 5.1 cm. The myometrium is homogeneous. The endometrium measures 8.1 mm combined thickness. No gestational sac is identified. Ovaries: The right ovary measures 3.2 x 2.0 x 2.0 cm, with a calculated ovarian volume of 6.7 cc. The left ovary measures 1.6 x 3.7 x 2.3 cm, with a calculated ovarian volume of 6.8 cc. Complex left ovarian cyst measuring 1.8 x 1.1 x 1.4 cm. Less than 12 follicles can be seen in each ovary. No adnexal masses are seen. Other: No pathologic free abdominal or pelvic fluid. IMPRESSION: Endometrium is normal in thickness. No gestational sac is identified. Complex left ovarian cyst measuring 1.8 cm. We strive to produce accurate, complete, and clear reports of imaging services. To assist us in improving patient care, this report was composed using standard report templates and voice recognition software. Therefore, it may contain abnormal punctuation, insertions and/or omissions. Occasional wrong-word or sound-alike substitutions may occur. Though we review the report and make efforts to correct it, we do recommend that the report be read carefully in proper context to recognize any text inaccuracies. Dictated by: Chon Bermudez M.D. on 01/25/2025 at 19:25 Approved by: Chon Bermudez M.D. on 01/25/2025 at 19:27
[2025-01-25 18:31] LABS: Bacteria Urine Occasional (0-1); RBC Urine >100/HPF (0-5/HPF); Squamous Epithelial Cell Urine 0-1 /HPF (0-5/HPF); Urine Volume 10mL (spun); WBC Urine 0-1/HPF (0-5/HPF)
[2025-01-25 18:33] LABS: Ictotest Urine Negative (Negative)
--- NOTE | 2025-01-26 02:06 | ED.FEMALEGU ---
HPI - Female Genitourinary General Chief complaint: Vaginal Bleeding Stated complaint: poss , poss miscarriage, sent by OB RN Time Seen by Provider: 01/25/25 16:53 Source: patient Mode of arrival: Ambulatory History of Present Illness HPI Narrative: Patient is a 24-year-old female presenting to with vaginal bleeding.? She was a reports that last menstrual cycle was December 21.? Not currently on control.? She and her has been are not preventing .? Reports that yesterday for 2 hours she had bleeding 1 pad an hour.? It has since slowed down.? She had worsening crampy yesterday today everything is better.? She was not dizzy lightheaded or short of breath. Denies any fever or chills no painful frequent urination. Related Data Home Medications Medication Instructions Recorded Confirmed No Known Home Medications 11/04/24 11/04/24 Allergies Allergy/AdvReac Type Severity Reaction Status Date / Time amoxicillin Allergy Severe swollen, Verified 11/04/24 15:35 SOB, lips swell cephalexin Allergy Severe selling of Verified 11/04/24 15:35 face ibuprofen Allergy Swelling Verified 11/04/24 15:35 of Lip/Tongue/Throat Patient History Medical History hemorrhage (spontaneous vaginal delivery) Teeth decayed Healthy adolescent Family History Grandmother Breast cancer Uterine cancer Rheumatoid arteritis Grandfather Septicemia Diabetes mellitus Pancreatitis Kidney failure Sister Eye disease Grandfather Alcoholic Family/Other Diabetes mellitus Hypertension Last Alcoholic Drink: does not use Exam Initial Vital Signs Initial Vital Signs: Vital Signs Temperature 97.9 F 01/25/25 16:44 Pulse Rate 86 01/25/25 16:44 Respiratory Rate 16 01/25/25 16:44 Blood Pressure 129/69 01/25/25 16:44 Pulse Oximetry 100 01/25/25 16:44 Oxygen Delivery Method Room Air 01/25/25 16:44 GENERAL:? Pleasant well-appearing 24-year-old year old patient appears stated age. Well-developed patient, in mild distress. HENT: EOMI, head atraumatic NECK: Trachea midline. Non tender CARDIOVASCULAR: Regular rate and rhythm without murmurs, gallops, or rubs. RESPIRATORY: Clear to auscultation. Breath sounds equal bilaterally. No wheezes, rales, or rhonchi.? GASTROINTESTINAL: Abdomen soft, non-tender, nondistended.? Minimal lower abdominal pain EXTREMITIES: No edema or joint tenderness. BACK: Nontender without deformity or crepitance. No flank tenderness. NEURO: AOx3. SKIN: No rash or erythema of visible areas Course Orders Ordered: ED Orders 01/25/25 17:13 Ictotest Urine Stat Urine Culture Stat Urine Microscopic Stat 01/25/25 18:20 US pelvic complete Stat Vital Signs Vital signs: Vital Signs - 8 hr 01/25/25 20:20 Pulse Rate 88 Respiratory Rate 16 Blood Pressure 106/54 L Pulse Oximetry 99 Oxygen Delivery Method Room Air MDM - Female Genitourinary Lab Data 01/25/25 17:02 01/25/25 17:02 Labs: Lab Results 01/25/25 01/25/25 Range/Units 17:02 17:13 WBC 6.7 (4.5-11.0) X10^3/uL RBC 4.55 (4.0-5.2) X10^6/uL Hgb 12.4 (12.0-16.0) g/dL Hct 37.1 (36-46) % MCV 81.6 (80-100) fL MCH 27.3 (26-34) PG MCHC 33.5 (30-36) % RDW 13.9 (11.6-14.8) % Plt Count 379 (150-400) X10^3/uL Neut % (Auto) 63.9 (50-75) % Lymph % (Auto) 23.3 L (25-40) % [place] % (Auto) 10.2 (3-14) % Eos % (Auto) 1.8 L (2-4) % Baso % (Auto) 0.8 (0-2) % Neut # (Auto) 4300 (6104-2963) /uL Lymph # (Auto) 1600 (0296-9323) /uL [place] # (Auto) 700 (0-900) /uL Eos # (Auto) 100 (0-450) /uL Baso # (Auto) 100 (0-100) /uL Sodium 140 (137-145) mmol/L Potassium 3.6 (3.4-5.1) mmol/L Chloride 106 (98-107) mmol/L Carbon Dioxide 27 (22-32) mmol/L BUN 9 (7-17) mg/dL Creatinine 0.70 (0.52-1.04) mg/dL Estimated GFR > 60 (>60) mL/min BUN/Creatinine Ratio 12.9 (6-22) Glucose 94 (70-100) mg/dL Calcium 8.4 (8.4-10.2) mg/dL Total Bilirubin 0.6 (0.2-1.3) mg/dL AST 33 (14-36) IU/L ALT 25 (<35) IU/L Alkaline Phosphatase 84 (38-126) U/L Total Protein 8.1 (6.3-8.2) g/dL Albumin 4.3 (3.5-5.0) g/dL Globulin 3.8 (1.7-4.1) g/dL Albumin/Globulin Ratio 1.1 (1.0-2.8) Serum , Qual Negative (Negative) Ur Bilirubin Confirm Negative (Negative) Urine RBC >100/hpf H (0-5/HPF) Urine WBC 0-1/hpf (0-5/HPF) Ur Squamous Epith Cells 0-1 /hpf (0-5/HPF) Urine Bacteria Occasional (0-1) (None) Vol Urine Centrifuged 10ml (spun) Blood Type O Positive Antibody Screen Negative Urine Dip Bedside Urine Glucose Negative Bedside Urine Bilirubin + 1 Bedside Urine Ketone - Negative Urine Specific [place] 1.025 Bedside Urine Occult Blood +++ Bedside Urine pH 6.0 Bedside Urine Protein + 30 Bedside Urine Urobilinogen +/- 1mg Bedside Urine Nitrite - Negative Bedside Urine Leukocytes + 70 Esterase Imaging Data US - PHARMACOGNOSIST: Radiologist's Impression: PROCEDURE: US PELVIC COMPLETE INDICATIONS: vaginal bleeding TECHNIQUE: Real-time scanning was performed of the pelvic organs, with image documentation. Additional endovaginal scanning was necessary due to incomplete visualization of the adnexal and endometrial structures by transabdominal scanning. COMPARISON: None. FINDINGS: Uterus: Uterus is anteverted and normal in size at 7.2 x 3.5 x 5.1 cm. The myometrium is homogeneous. The endometrium measures 8.1 mm combined thickness. No gestational sac is identified. Ovaries: The right ovary measures 3.2 x 2.0 x 2.0 cm, with a calculated ovarian volume of 6.7 cc. The left ovary measures 1.6 x 3.7 x 2.3 cm, with a calculated ovarian volume of 6.8 cc. Complex left ovarian cyst measuring 1.8 x 1.1 x 1.4 cm. Less than 12 follicles can be seen in each ovary. No adnexal masses are seen. Other: No pathologic free abdominal or pelvic fluid. IMPRESSION: Endometrium is normal in thickness. No gestational sac is identified. Complex left ovarian cyst measuring 1.8 cm. We strive to produce accurate, complete, and clear reports of imaging services. To assist us in improving patient care, this report was composed using standard report templates and voice recognition software. Therefore, it may contain abnormal punctuation, insertions and/or omissions. Occasional wrong-word or sound-alike substitutions may occur. Though we review the report and make efforts to correct it, we do recommend that the report be read carefully in proper context to recognize any text inaccuracies. Dictated by: Chon Bermudez M.D. on 01/25/2025 at 19:25 [facility] Narrative Medical decision making narrative: MDM: Patient is a 24-year-old healthy female presenting today with vaginal bleeding report that she had 2 hours of heavy bleeding yesterday where she changed 1 pad an hour.? She reports that everything has slow down and improved since then. Blood work has been reviewed she was not currently she was not anemic vitals are stable.? Orthostatics were checked. At this time ultrasound has been reviewed overall reassuring.? Urinalysis does not show any kind of evidence of UTI or . At this time discussion with her this is likely her regular menstrual cycle which is slightly delayed and maybe little bit heavier than normal.? Discussed with her if she would like to prevent versus not.? At this time patient can be discharged home. Discharge Plan Departure Patient Disposition: Home Clinical Impression: Abnormal vaginal bleeding Prescriptions: No Action No Known Home Medications Stand Alone Forms: Patient Portal/API/Survey
== END 2025-01-25 20:24 | disposition home or self-care (01) ==
PROVIDERS: Emergency Medicine; Emergency Provider Emergency Medicine; PCP Obstetrics & Gynecology
DX: N93.9 Abnormal uterine and vaginal bleeding, unspecified (principal)
CPT/HCPCS: 36415; 76830; 76856; 80053; 81003; 81015; 84703; 85025; 86850; 86900; 86901; 87086; 99283; 99284

== ENCOUNTER 2025-07-23 17:34 | Emergency (ER) | payer MEDICAID, SELFPAY ==
[2024-10-21 05:17] VITALS: BMI 38.9
[2025-07-23 17:40] VITALS: BP 119/65; PULSE 91; RESP 16; TEMP 36.6; O2SAT 100; BMI 43.4
--- NOTE | 2025-07-23 21:38 | ED.BACK ---
HPI - Back Pain/Injury General Chief Complaint: Back Pain/Injury Stated Complaint: back pain Time Seen by Provider: 07/23/25 21:38 History of Present Illness HPI Narrative: Patient is a 25-year-old healthy female presenting today with left lower back pain. She reports that it has been ongoing for a couple of days she feels like she turned it or tweaked it when she got out of the shower. She has no numbness or tingling going down her leg no change in bowel or bladder habits. She did not fall. She has been taking Tylenol and [id number] lidocaine patches without any kind of relief. She has multiple allergies including to ibuprofen and Toradol along with the amoxicillin. She denies any painful frequent urination. Pain is also not radiating around to her abdomen. Related Data Previous Rx's ?Medication ?Instructions ?Recorded methocarbamol 500 mg tablet 500 mg PO Q8H PRN muscle spasm #10 07/23/25 tabs nitrofurantoin 100 mg PO Q12H 5 days #10 caps 07/23/25 monohydrate/macrocrystals 100 mg capsule (Macrobid) Allergies Allergy/AdvReac Type Severity Reaction Status Date / Time amoxicillin Allergy Severe swollen, Verified 11/04/24 15:35 SOB, lips swell cephalexin Allergy Severe selling of Verified 11/04/24 15:35 face ibuprofen Allergy Swelling Verified 11/04/24 15:35 of Lip/Tongue/Throat Patient History Medical History hemorrhage (spontaneous vaginal delivery) Teeth decayed Healthy adolescent Family History Grandmother Breast cancer Uterine cancer Rheumatoid arteritis Grandfather Septicemia Diabetes mellitus Pancreatitis Kidney failure Sister Eye disease Grandfather Alcoholic Family/Other Diabetes mellitus Hypertension Social History marital status: unmarried,living together number of children: 1 household members: spouse, family and children housing: house pets and animals: No education level: high school occupational status: unemployed current occupational exposures/hazards: No seatbelt use: always water heater temp set < 120 deg: Yes working smoke detector in home: Yes fire extinguisher in home: Yes carbon monox detector in home: Yes firearms in home: No do you feel safe at home: Yes substance use type: does not use during the past year weight has: remained stable well-balanced diet: daily or most days daily servings fruits/ve-4 caffeine: No eating out: rarely or never Type(s) of exercise: walking Exam Initial Vital Signs Initial Vital Signs: Vital Signs Temperature 97.8 F 07/23/25 17:40 Pulse Rate 91 H 07/23/25 17:40 Respiratory Rate 16 07/23/25 17:40 Blood Pressure 119/65 07/23/25 17:40 Pulse Oximetry 100 07/23/25 17:40 Oxygen Delivery Method Room Air 07/23/25 17:40 GENERAL: Well-appearing, well-nourished and in no acute distress. CARDIOVASCULAR: peripheral pulses in tact, cap refill <2 sec RESPIRATORY: No respiratory distress, speaks in full sentences without difficulty BACK: No vertebral tenderness tender left lower lumbar pain EXTREMITIES: Normal range of motion, no clubbing or edema. Neurovascularly intact NEUROLOGICAL: Cranial nerves II through XII grossly intact. Normal gait and speech. She is currently using a walker to stand SKIN: Warm, dry, no petechiae, no rashes or lesions. Course Orders Ordered: ED Orders 07/23/25 21:47 Ictotest Urine Stat Urine Culture Stat Urine Microscopic Stat Discontinued Medications Acetaminophen (Acetaminophen 325 Mg Tablet) 650 mg PO NOW ONE Stop: 07/23/25 22:04 Last Admin: 07/23/25 22:12 Dose: 650 mg Documented By: NOAH Hydrocodone Bitart/Acetaminophen (Hydrocodone/Acet 5/325 Prepack) 1 bottle MISC DIRECTED ONE Stop: 07/23/25 22:07 Last Admin: 07/23/25 22:11 Dose: 1 bottle Documented By: NOAH Methocarbamol (Methocarbamol 500 Mg Tablet) 500 mg PO NOW ONE Stop: 07/23/25 22:04 Last Admin: 07/23/25 22:12 Dose: 500 mg Documented By: NOAH Nitrofurantoin Macrocrystals (Nitrofurantoin Er 100 Mg Capsule) 100 mg PO NOW ONE Stop: 07/23/25 22:04 Last Admin: 07/23/25 22:12 Dose: 100 mg Documented By: NOAH Vital Signs Vital signs: Vital Signs - 8 hr 07/23/25 17:40 07/23/25 21:56 07/23/25 21:57 Temperature 97.8 F Pulse Rate 91 H 107 H Respiratory Rate 16 Blood Pressure 119/65 Pulse Oximetry 100 94 98 Oxygen Delivery Method Room Air 07/23/25 21:57 Temperature Pulse Rate Respiratory Rate Blood Pressure 126/60 Pulse Oximetry Oxygen Delivery Method MDM - Back Pain/Injury Lab Data Labs: Lab Results 07/23/25 Range/Units 21:47 Ur Bilirubin Confirm Negative (Negative) Urine RBC 1-5/hpf D (0-5/HPF) Urine WBC 10-30/hpf H (0-5/HPF) Ur Squamous Epith Cells 1-5 /hpf (0-5/HPF) Ur Renal Epithelial Cell 0-1/hpf (0-1/HPF) Urine Bacteria Many (>30) H (None) Vol Urine Centrifuged 10ml (spun) Point of Care Testing Test Results Negative Urine Dip Bedside Urine Glucose Negative Bedside Urine Bilirubin + 1 Bedside Urine Ketone - Negative Urine Specific Lawrence 1.025 Bedside Urine Occult Blood +++ Bedside Urine pH 6.0 Bedside Urine Protein + 30 Bedside Urine Urobilinogen +/- 1mg Bedside Urine Nitrite + Positive Bedside Urine Leukocytes + 70 Esterase MDM Narrative Medical decision making narrative: Patient 25-year-old female presenting today with left lower back pain and spasm. There is no trauma no injury no need for imaging at this time. Not having cauda equina symptoms. He is not having nausea vomiting it is not radiating around her stomach does not seem to be nephrolithiasis. The pain is reproducible to palpation this is more musculoskeletal. She is given Tylenol Robaxin here in the ED. She is not wanting anything stronger but also worried that this is been ongoing. We talked about pain control at home we will give her a couple of Sherman as well. She does have nitrites in her urine not having a lot of dysuria. She also has allergies to cephalexin and amoxicillin so she is given Macrobid. Discharge Plan Departure Patient Disposition: Home Clinical Impression: Strain of lumbar region, UTI (urinary tract infection) Instructions: DI for Urinary Tract Infection (UTI), DI for Back Spasm Activity Restrictions/Additional Instructions: *You have been diagnosed with back spasm UTI *What to do: At this time increase activity as tolerated try some light stretching and heating pad. *Continue to take medications as directed Tylenol 650 mg to 1000 mg every 4-6 hours for [id number] pain Robaxin 500 mg every 8 hours only if needed for muscle spasm Sherman 1 tablet or break in half every 6 hours only if needed for severe pain (do not take more than 1000 mg at a time of type, this contains 325mg in each tablet) *Follow up with your primary care provider in 2-3 days or call [phone] *Return to ER if you should have increasing pain numbness tingling fever and vomiting [or] any new, worsening or concerning symptoms CONTROLLED SUBSTANCE DISCHARGE (Narcotoic/benzodiazepine/Flexeril/Phenergan) 1. You have been prescribed narcotic medications, it does have acetaminophen/Tylenol/paracetamol in it, DO NOT TAKE MORE THAN 4,00mg in 24 hours of Tylenol. TRAMADOL DOES NOT CONTAIN TYLENOL 2. Please understand that we cannot provide further refills of narcotics, benzodiazepines or controlled substances through the ED and her pain management will need to be through your provider. 3. While on these medications you cannot drive or operate heavy machinery. 4. You cannot sign legal documents or perform any duties such as this. 5. As long as you're taking opiate pain medications he should also be taking a stool softener such as Colace, Dulcolax, MiraLAX or prune juice, to help avoid constipation. Prescriptions: New nitrofurantoin monohyd/m-cryst [Macrobid] 100 mg capsule 100 mg PO Q12H 5 Days Qty: 10 0RF Rx Instructions: must administer with a meal/food methocarbamol 500 mg tablet 500 mg PO Q8H PRN (Reason: muscle spasm) Qty: 10 0RF Referrals: Phillip Neff MD [Primary Care Provider, [employer]] Stand Alone Forms: Patient Portal/API
[2025-07-23 21:56] VITALS: O2SAT 94
[2025-07-23 21:57] VITALS: BP 126/60; PULSE 107; O2SAT 98
[2025-07-23] MEDS: NITROFURANTOIN ER 100 MG CAPSULE PO (22:12)
[2025-07-23] MEDS: ACETAMINOPHEN 325 MG TABLET 650 MG PO (22:12)
[2025-07-23 22:23] LABS: Ictotest Urine Negative (Negative)
== END 2025-07-23 22:40 | disposition home or self-care (01) ==
PROVIDERS: Emergency Provider Emergency Medicine; PCP Obstetrics & Gynecology
DX: S39.012A Strain of muscle, fascia and tendon of lower back, initial encounter (principal); N39.0 Urinary tract infection, site not specified; M62.830 Muscle spasm of back
CPT/HCPCS: 81003; 81015; 81025; 87077; 87086; 87186; 99283